=== PATIENT | female | born 1990 | race Caucasian/White ===

== ENCOUNTER 2016-06-10 15:56 | Emergency (ER) | payer OTHER ==
[2016-06-10 16:01] VITALS: BP 113/73; PULSE 79; TEMP 99.1; BMI 24.0
--- NOTE | 2016-06-10 16:46 | PDOC ---
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 Patient states urine did not go above her nose and immediately rinsed with hot water and soap but was sent here by the nursing newspaper distributor supervisor for further evaluation. Timing: just prior to arrival Exposed Location: Bilateral: Face, Other exposed area(s) (neck) Past History - Travel Traveled outside of the country in the last 30 days: No Close contact w/someone who was outside of country & ill: No - Past Medical History Allergies/Adverse Reactions: Allergies No Known Allergies Allergy (Verified 06/10/16 16:01) Home Medications: Ambulatory Orders Fexofenadine HCl [Carly Allergy] 180 mg PO DAILY #7 tablet 02/19/16 Fluticasone Propionate [Flonase Allergy Relief] 1 spray NS BID #1 bottle General: Yes: no pertinent history Surgical History: Yes: No Surgical History - Social History Smoking Status: Never smoked Patient Lives Alone: No Review of Systems - Review of Systems Able to Perform ROS?: Yes Constitutional: No: Symptoms Reported HEENTM: No: Symptoms Reported Respiratory: No: Symptoms reported Integumentary: No: Symptoms Reported Endocrine: No: Symptoms Reported Hematologic/Lymphatic: No: Symptoms Reported *Physical Exam - Vital Signs Last Vital Signs Temp Pulse Resp BP Pulse Ox 99.1 F 79 18 113/73 98 06/10/16 15:59 06/10/16 15:59 06/10/16 15:59 06/10/16 15:59 06/10/16 15:59 - Physical Exam General Appearance: Yes: Nourished, Appropriately Dressed. No: Apparent Distress HEENT: positive: Other (no open lesions or sores to face.) Neck: positive: Other (skin intact to neck) Integumentary: positive: Normal Color, Warm, Moist Neurologic: positive: Motor Strength 5/5 (ambulatory) Medical Decision Making - Medical Decision Making 06/10/16 16:44 Patient sent down here for evaluation of urine splash to neck and lower face by an 87-year-old male patient upstairs while collecting urinalysis. Patient immediately following incident cleanse with hot water and soap. Patient sent here for further evaluation. Patient had noted intact skin throughout her neck and face. Patient sent home with supportive care instructions and paperwork completed. *DC/Admit/Observation/Transfer Diagnosis at time of Disposition: Employee exposure to body fluids - Discharge Dispostion Disposition: HOME Condition at time of disposition: Good - Referrals - Patient Instructions Printed Discharge Instructions: How to Handle Body Fluid Exposure -- Healthcare Worker Additional Instructions: Although I have enclosed instructions about body fluid exposure , exposure you have received today with some sterile fluid to intact skin. Please follow-up with the nursing newspaper distributor supervisor - Post Discharge Activity Work/School Note: Back to Work
== END 2016-06-10 16:57 | disposition home or self-care (01) ==
LOC: JERFT 15:56
DX: Z77.21 Contact with and (suspected) exposure to potentially hazardous body fluids (principal); X58.XXXA Exposure to other specified factors, initial encounter; Y93.F9 Activity, other caregiving; Y92.230 Patient room in hospital as the place of occurrence of the external cause; Y99.0 Civilian activity done for income or pay
CPT/HCPCS: 99281-25

== ENCOUNTER 2016-12-01 07:52 | Emergency (ER) | payer OTHER ==
[2016-12-01 08:00] VITALS: BP 100/57; PULSE 84; TEMP 98.7; BMI 25.6
--- NOTE | 2016-12-01 08:35 | PDOC ---
History of Present Illness - General Chief Complaint: Eye Problem Stated Complaint: emplyee SWOLLEN RT EYE Time Seen by Provider: 12/01/16 08:16 History Source: Patient Exam Limitations: No Limitations - History of Present Illness Initial Comments: 12/01/16 08:28 25 yr female with swelling around the right eye woke up this morning. Pt denies injury or trauma no pain to the area. Pt takes over the counter antihistamine at night for her seasonal allergies. no fever no vision changes or eye discharge. Past History - Past Medical History Allergies/Adverse Reactions: Allergies Allergy/AdvReac Type Severity Reaction Status Date / Time No Known Allergies Allergy Verified 12/01/16 07:57 Home Medications: Ambulatory Orders Fexofenadine HCl [Carly Allergy] 180 mg PO DAILY #7 tablet 02/19/16 Fluticasone Propionate [Flonase Allergy Relief] 1 spray NS BID #1 bottle Asthma: Yes - Suicide/Smoking/Psychosocial Hx Smoking History: Never smoked Have you smoked in the past 12 months: No Information on smoking cessation initiated: No Hx Alcohol Use: No Drug/Substance Use Hx: No Substance Use Type: None *Physical Exam - Vital Signs Last Vital Signs Temp Pulse Resp BP Pulse Ox 98.7 F 84 18 100/57 100 12/01/16 07:58 12/01/16 07:58 12/01/16 07:58 12/01/16 07:58 12/01/16 07:58 - Physical Exam General Appearance: Yes: Nourished, Appropriately Dressed HEENT: positive: EOMI, FIOR, Normal ENT Inspection, TMs Normal, Pharynx Normal Neck: positive: Supple. negative: Tender Respiratory/Chest: positive: Lungs Clear, Normal Breath Sounds. negative: Chest Tender Cardiovascular: positive: Regular Rhythm, Regular Rate Musculoskeletal: positive: Normal Inspection Extremity: positive: Normal Capillary Refill, Normal Inspection, Normal Range of Motion Integumentary: positive: Normal Color, Dry, Warm, Swelling (let eye with under eye swelling no redness non tender, skin intact ) Neurologic: positive: Fully Oriented, Alert, Normal Mood/Affect, Normal Response , Motor Strength 5/5 Medical Decision Making - Medical Decision Making 12/01/16 08:37 cc: swelling under her left eye woke up this am non tender, skin intact no eye discharge or drainage will place ice pack pt aware to watch and wait and will follow with her PMD this week or return to ER for any worsening swelling or pain or redness. *DC/Admit/Observation/Transfer Diagnosis at time of Disposition: Allergic reaction Qualifiers: Encounter type: initial encounter Qualified Code(s): T78.40XA - Allergy, unspecified, initial encounter; T78.40XA - Allergy, unspecified, initial encounter - Discharge Dispostion Disposition: HOME Condition at time of disposition: Good - Patient Instructions Additional Instructions: apply ice to the area of pain every 2hrs for 15 minutes take motrin as directed for any swelling or pain if any redness, pain, fever or increased swelling return to the ER right away - Post Discharge Activity Forms/Work/School Notes: Back to Work
== END 2016-12-01 09:08 | disposition home or self-care (01) ==
LOC: JERFT 07:52
DX: T78.40XA Allergy, unspecified, initial encounter (principal)
CPT/HCPCS: 99281-25